=== PATIENT | male | born 1940 | race Caucasian/White ===

== ENCOUNTER 2017-07-28 22:10 | Inpatient (IN) | payer OTHER, BC ==
[~2017-07-28] VITALS: Ht 172.7 cm; Wt 78.5 kg
[~2017-07-28 22:10] MED LIST: ASPIR 8181 M1 PO; HYDROCODON-ACE1 EAC7 PO; METFORMIN HCL500 MG PO; MULTIPLE VITAM1 EACH PO; PRESERVISION T1 EACH PO; TRAVOPROST 0.02.5 ML BOTH EYES
[2017-07-29 08:23] VITALS: BP 141/71
[2017-07-29 15:35] VITALS: BP 130/75
[2017-07-29 16:05] VITALS: BP 130/75
[2017-07-29 20:00] VITALS: BP 122/67
[2017-07-29 23:48] VITALS: BP 119/64
[2017-07-30 05:48] VITALS: BP 110/58
[2017-07-30 06:21] LABS: HEMATOCRIT 33.8 % (38.0-50.0); MCV 93.9 FL (86-99)
[2017-07-30 06:47] LABS: HEMOGLOBIN 11.2 G/DL (12.5-16.6)
[2017-07-30 08:00] VITALS: BP 99/54
== END 2017-07-30 11:40 | disposition home or self-care (01) | DRG 483 ==
LOC: ENRESERV 22:10 → 2SOUTH 07-29 07:06 → ENRESERV 07-29 14:01 → 2SOUTH 07-29 15:27 → 3EAST 07-29 15:33
PROVIDERS: Orthopaedic Surgery
PROC: 0RRK00Z Replacement of Left Shoulder Joint with Reverse Ball and Socket Synthetic Substitute, Open Approach (ICD-10-PCS; principal; 2017-07-29)
DX: M19.012 Primary osteoarthritis, left shoulder (principal); H40.9 Unspecified glaucoma; E11.9 Type 2 diabetes mellitus without complications; R63.3 Feeding difficulties; N40.0 Benign prostatic hyperplasia without lower urinary tract symptoms; Z87.891 Personal history of nicotine dependence; M75.102 Unspecified rotator cuff tear or rupture of left shoulder, not specified as traumatic
CPT/HCPCS: 82948; 85014; 85018; 90686; 93005; 94799; C1713; J0131; J0330; J0690; J1170; J2250; J2405; J2795; J3010; J7030; J7050